=== PATIENT | female | born 1955 | race Caucasian/White ===

== ENCOUNTER → 2019-08-18 | Outpatient (CLI) | payer MEDICARE, OTHER ==
[~2019-08-18] MED LIST: IOPAMIDOL 370 MG/ML 200 ML INFUS..BTL INJ ONE; SODIUM CHLORIDE 0.9% 500ML 500 ML ONE; SODIUM CHLORIDE 0.9% 50ML 50 ML ONE
[2019-08-18 11:19] LABS: CREATININE, SERUM 1.04 mg/dL (0.57-1.11)
--- NOTE | 2019-08-18 13:44 | Diagnostic Imaging Report ---
EXAM: CT Chest WITH contrast 08/18/2019 10:50 AM INDICATION: ^[id number] ^[id number] ^ABNORMAL CHEST X-RAY COMPARISON: None TECHNIQUE: Chest was scanned utilizing a multidetector helical scanner from the lung apex through the level of the adrenal glands without administration of IV contrast. Coronal and sagittal reformations were obtained. Routine protocol was performed. IV CONTRAST: 100 mL of Omnipaque 300 COMPLICATIONS: None RADIATION DOSE: Total DLP: 606 mGy*cm Estimated effective dose: (DLP x 0.014 x size factor) mSv CTDIvol has been reviewed. It is below the limits set by the Radiation Protocol Committee (RPC). Dose modulation, iterative reconstruction, and/or weight based adjustment of the mA/kV was utilized to reduce the radiation dose to as low as reasonably achievable. FINDINGS: LINES/ TUBES: None. LUNGS AND AIRWAYS: 9 mm noncalcified left lower lobe pulmonary nodule adjacent to the major fissure (image 74). Minimal left lower lobe mucous plugging. PLEURA: The pleural spaces are clear. HEART AND MEDIASTINUM: Normal heart size. No pericardial effusion. Nonspecific mediastinal and hilar lymphadenopathy. For example, an enlarged subcarinal lymph node measures up to 1.3 cm in short axis (image 58) and a right hilar lymph node measures 2.4 cm in short axis (image 56). UPPER ABDOMEN: No focal hepatic lesion. Mild apparent wall thickening of the gastric antrum. Prominent left periaortic retroperitoneal lymph node. Small hiatal hernia. BONES: The visualized bony thorax is within normal limits. SOFT TISSUES: Unremarkable. IMPRESSION: 1. Nonspecific mediastinal and hilar lymphadenopathy. Differential considerations include lymphoma, metastatic disease, and a reactive process. Follow-up is recommended. 2. Indeterminate 9 mm left lower lobe pulmonary nodule. 3. Mild apparent wall thickening gastric antrum. Differential considerations include contraction/peristalsis, gastritis, and neoplasm. Signed by: Farshad Murphy MD on 08/18/2019 1:41 PM
== END ==
LOC: MAMMO 10:35
PROVIDERS: ATTEND Family Medicine
DX: Z12.31 Encounter for screening mammogram for malignant neoplasm of breast (principal); R93.89 Abnormal findings on diagnostic imaging of other specified body structures; J20.9 Acute bronchitis, unspecified; J06.9 Acute upper respiratory infection, unspecified
CPT/HCPCS: 36415; 71260; 77067; 82565; 84520; 96360; J7040; Q9967

== ENCOUNTER → 2019-09-14 | Outpatient (CLI) | payer MEDICARE, OTHER ==
--- NOTE | 2019-09-16 18:12 | Diagnostic Imaging Report ---
#[id number] - [id number] #UNILATERAL LEFT DIGITAL DIAGNOSTIC MAMMOGRAM WITH SPOT COMPRESSION: 09/14/2019 Comparison is made to exam dated: 08/18/2019 mammogram - [facility]. The tissue of the left breast is heterogeneously dense. This may lower the sensitivity of mammography. The previously seen asymmetry of the left breast presses out on compession images and thus likely represents superimposition of normal fibroglandular tissue. There has been no significant interval change. IMPRESSION: NEGATIVE The previously seen asymmetry of the left breast presses out on compession images and thus likely represents superimposition of normal fibroglandular tissue. No mammographic evidence of malignancy. A 1 year screening mammogram is recommended. The patient will be notified by letter of the results. CHANA MOROCHO M.D. kw/:09/16/2019 11:48:16 Car Attendant: Pilar HILLS(Harry)(Donnie), [facility] letter sent: Compared to Prior B9 Mammogram BI-RADS: 1 Negative
== END ==
LOC: MAMMO 09:04
PROVIDERS: ATTEND Family Medicine
DX: N64.89 Other specified disorders of breast (principal)